=== PATIENT | female | born 1995 | race Caucasian/White ===

== ENCOUNTER 2017-12-10 18:11 | Inpatient (IN) | payer MEDICAID, OTHER ==
[~2017-12-10] VITALS: Ht 162.6 cm; Wt 54.5 kg
[2017-12-10] MEDS ORDERED: VENL-193 PO (18:38)
[2017-12-10] MEDS ORDERED: ARIP5TAB8 PO (18:38)
[2017-12-10 18:41] LABS: BASOPHILS % (AUTO) 0.9 % (0.0-2.0); EOSINOPHILS % (AUTO) 1.6 % (1.0-6.0); HEMOGLOBIN 12.3 g/dL (12.0-16.0); LYMPHOCYTES # (AUTO) 1.1 K/uL (1.0-4.8); LYMPHOCYTES % (AUTO) 19.2 % (22.0-44.0); MEAN CORPUSCULAR HEMOGLOBIN 28.6 pg (26.0-34.0); MEAN CORPUSCULAR HGB CONC 34.1 G/dL (31.0-37.0); MEAN CORPUSCULAR VOLUME 84 fL (80-100); MONOCYTES # (AUTO) 0.5 K/uL (0.1-1.0); NEUTROPHILS # (AUTO) 3.9 K/uL (1.8-7.7); NEUTROPHILS % (AUTO) 69.3 % (40.0-70.0); PLATELET COUNT (AUTO) 222 K/uL (150-450); RED CELL DISTRIBUTION WIDTH 14.1 % (11.5-14.5)
[2017-12-10 18:48] LABS: ANION GAP 8 mmol/L (8-16); CALCIUM, TOTAL 8.9 mg/dL (8.8-10.5); CARBON DIOXIDE 30 mmol/L (22-29); CHLORIDE 102 mmol/L (98-107); CREATININE 0.61 mg/dL (0.60-1.30); GLOMERULAR FILTR. RATE CALC > 60 mL/min (>60); GLUCOSE,RANDOM 86 mg/dL (70-110); POTASSIUM 3.5 mmol/L (3.5-5.1); SODIUM SERUM 140 mmol/L (136-145); UREA NITROGEN, BLOOD 11 mg/dL (7-18)
[2017-12-10 18:55] LABS: ALANINE AMINOTRANSFERASE 25 U/L (12-78); ALBUMIN 3.8 g/dL (3.4-5.0); ALKALINE PHOSPHATASE 80 U/L (46-116); ASPARTATE AMINOTRANSFERASE 19 U/L (15-37); BILIRUBIN,TOTAL 0.4 mg/dL (0.1-1.0); TOTAL PROTEIN, SERUM 7.6 g/dL (6.4-8.2)
[2017-12-10 22:07] LABS: AMPHET/METH SCREEN,URINE NEGATIVE (NEGATIVE); BARBITURATE SCREEN, URINE NEGATIVE (NEGATIVE); BENZODIAZEPINES SCREEN,URINE NEGATIVE (NEGATIVE); CANNABINOID SCREEN,URINE NEGATIVE (NEGATIVE); COCAINE SCREEN,URINE NEGATIVE (NEGATIVE); METHADONE SCREEN, URINE NEGATIVE (NEGATIVE); OPIATE SCREEN,URINE NEGATIVE (NEGATIVE); PHENCYCLIDINE SCREEN,URINE NEGATIVE (NEGATIVE)
[2017-12-10] MEDS: ZOLPIDEM TARTRATE 10 MG TABLET PO PRN (23:36)
[2017-12-11 00:30] VITALS: BP 135/85
[2017-12-11 02:07] LABS: APPEARANCE,URINE CLEAR (CLEAR); BILIRUBIN,URINE NEGATIVE (NEGATIVE); GLUCOSE, URINE (UA) NEGATIVE (NEGATIVE); KETONES,URINE NEGATIVE (NEGATIVE); LEUKOCYTE ESTERASE ,URINE NEGATIVE (NEGATIVE); NITRATE,URINE NEGATIVE (NEGATIVE); OCCULT BLOOD,URINE NEGATIVE (NEGATIVE); PH,URINE 5.5 (5.0-8.0); PROTEIN,URINE NEGATIVE (NEGATIVE); UROBILINOGEN,URINE 0.2 mg/dL (<=1.0)
[2017-12-11 02:27] VITALS: BP 135/85
[2017-12-11 07:19] LABS: CHOL/HDL RATIO 2.5 (3.9-5.7)
[2017-12-11] MEDS: LORazepam 2 MG TABLET PO PRN (08:27)
[2017-12-11] MEDS: HALOPERIDOL 5 MG TABLET PO PRN (08:27)
[2017-12-11 09:26] VITALS: BP 119/73
[2017-12-11 18:18] VITALS: BP 111/60
[2017-12-12] MEDS: ZOLPIDEM TARTRATE 10 MG TABLET PO PRN ×2 (00:01→21:11)
[2017-12-12] MEDS: HALOPERIDOL 5 MG TABLET PO PRN ×3 (00:01→21:11)
[2017-12-12 08:15] VITALS: BP 135/64
[2017-12-12] MEDS ORDERED: VENLAFAXINE HCL 75 MG ER CAPSULE PO SCH (09:00)
[2017-12-12] MEDS ORDERED: QUEtiapine FUMARATE 25 MG TABLET PO SCH (09:00)
[2017-12-12] MEDS: QUEtiapine FUMARATE 25 MG TABLET PO SCH (16:45)
[2017-12-12 17:32] VITALS: BP 128/71
[2017-12-13] MEDS: VENLAFAXINE HCL 150 MG ER CAPSULE PO SCH (10:23)
[2017-12-13] MEDS: QUEtiapine FUMARATE 25 MG TABLET PO SCH ×2 (10:24→16:24)
[2017-12-13] MEDS: LORazepam 2 MG TABLET PO PRN (12:02)
[2017-12-13] MEDS: HALOPERIDOL 5 MG TABLET PO PRN (12:03)
[2017-12-14 08:00] VITALS: BP 123/74
[2017-12-14] MEDS: HALOPERIDOL 5 MG TABLET PO PRN (08:37)
[2017-12-14] MEDS: LORazepam 2 MG TABLET PO PRN (08:37)
[2017-12-14] MEDS: VENLAFAXINE HCL 150 MG ER CAPSULE PO SCH (08:37)
[2017-12-14] MEDS: QUEtiapine FUMARATE 25 MG TABLET PO SCH (08:37)
[2017-12-14] MEDS: QUEtiapine FUMARATE 100 MG TABLET PO SCH (16:52)
[2017-12-14] MEDS ORDERED: QUEtiapine FUMARATE 25 MG TABLET PO SCH (17:00)
[2017-12-14 17:30] VITALS: BP 105/68
[2017-12-15 04:50] VITALS: BP 117/77
[2017-12-15] MEDS: HALOPERIDOL 5 MG TABLET PO PRN ×2 (05:01→17:48)
[2017-12-15] MEDS: QUEtiapine FUMARATE 100 MG TABLET PO SCH ×2 (08:35→17:33)
[2017-12-15] MEDS: LORazepam 2 MG TABLET PO PRN ×2 (08:37→17:48)
[2017-12-15] MEDS ORDERED: VENLAFAXINE HCL 150 MG ER CAPSULE PO SCH (09:00)
[2017-12-15] MEDS: VENLAFAXINE HCL 75 MG ER CAPSULE PO SCH (10:25)
[2017-12-15 13:57] VITALS: BP 125/73
[2017-12-15 16:51] VITALS: BP 111/58
[2017-12-15] MEDS ORDERED: QUEtiapine FUMARATE 200 MG TABLET PO SCH (21:00)
[2017-12-16 08:00] VITALS: BP 126/70
[2017-12-16] MEDS: QUEtiapine FUMARATE 100 MG TABLET PO SCH ×2 (09:33→16:34)
[2017-12-16] MEDS: VENLAFAXINE HCL 75 MG ER CAPSULE PO SCH (09:33)
[2017-12-16] MEDS: LORazepam 2 MG TABLET PO PRN ×2 (10:34→16:35)
[2017-12-16] MEDS: HALOPERIDOL 5 MG TABLET PO PRN (10:34)
[2017-12-16 16:08] VITALS: BP 99/55
[2017-12-16] MEDS ORDERED: VENL-67 PO (18:21)
[2017-12-16] MEDS ORDERED: QUET200T PO (18:21)
[2017-12-16] MEDS ORDERED: QUET100T PO (18:21)
== END 2017-12-16 19:00 | disposition home or self-care (01) | DRG 750 ==
LOC: EMS 18:14 → 6N 12-11 00:03 → UNDOADMIN 12-11 00:03 → 3EI 12-11 00:03
PROVIDERS: ADMIT Psychiatry & Neurology Psychiatry; ATTEND Psychiatry & Neurology Psychiatry
DX: F25.1 Schizoaffective disorder, depressive type (principal); R45.851 Suicidal ideations; F29 Unspecified psychosis not due to a substance or known physiological condition; D64.9 Anemia, unspecified; F41.9 Anxiety disorder, unspecified; F60.3 Borderline personality disorder; Z91.5 Personal history of self-harm
CPT/HCPCS: 99285; G0480

== ENCOUNTER 2018-05-27 19:36 | Emergency (ER) | payer MEDICAID, OTHER ==
[~2018-05-27] VITALS: Ht 165.1 cm; Wt 59.1 kg
[~2018-05-27 19:36] MED LIST: QUET100T PO; QUET200T PO; VENL-67 PO
[2018-05-27] MEDS ORDERED: SODIUM CHLORIDE 0.9% 1,000 ML IV ONE (20:00)
[2018-05-27] MEDS ORDERED: ONDANSETRON HCL 4 MG/2 ML VIAL IVP ONE (20:00)
[2018-05-27] MEDS ORDERED: RISP.5 PO (20:01)
[2018-05-27] MEDS ORDERED: HALO1 PO (20:01)
[2018-05-27] MEDS ORDERED: QUET25TA PO (20:01)
[2018-05-27 20:08] LABS: BASOPHILS % (AUTO) 0.1 % (0.0-2.0); EOSINOPHILS % (AUTO) 0 % (1.0-6.0); HEMATOCRIT 35.2 % (36-46); HEMOGLOBIN 12.3 g/dL (12.0-16.0); LYMPHOCYTES # (AUTO) 0.9 K/uL (1.0-4.8); LYMPHOCYTES % (AUTO) 12.2 % (22.0-44.0); MEAN CORPUSCULAR HEMOGLOBIN 28.8 pg (26.0-34.0); MEAN CORPUSCULAR VOLUME 82 fL (80-100); MONOCYTES # (AUTO) 0.3 K/uL (0.1-1.0); MONOCYTES % (AUTO) 4.5 % (2.0-9.0); NEUTROPHILS # (AUTO) 6.3 K/uL (1.8-7.7); NEUTROPHILS % (AUTO) 83.2 % (40.0-70.0); PLATELET COUNT (AUTO) 213 K/uL (150-450); RED BLOOD CELL COUNT(AUTO) 4.27 MIL/uL (4.00-5.20); RED CELL DISTRIBUTION WIDTH 14.2 % (11.5-14.5)
[2018-05-27 20:17] LABS: ANION GAP 11 mmol/L (8-16); CALCIUM, TOTAL 9.1 mg/dL (8.8-10.5); CARBON DIOXIDE 28 mmol/L (22-29); CHLORIDE 101 mmol/L (98-107); CREATININE 0.68 mg/dL (0.60-1.30); GLOMERULAR FILTR. RATE CALC > 60 mL/min (>60); GLUCOSE,RANDOM 141 mg/dL (70-110); POTASSIUM 3.6 mmol/L (3.5-5.1); SODIUM SERUM 140 mmol/L (136-145); UREA NITROGEN, BLOOD 8 mg/dL (7-18)
[2018-05-27 20:22] LABS: ALANINE AMINOTRANSFERASE 19 U/L (12-78); ALBUMIN 3.9 g/dL (3.4-5.0); ALKALINE PHOSPHATASE 86 U/L (46-116); ASPARTATE AMINOTRANSFERASE 15 U/L (15-37); BILIRUBIN,TOTAL 0.2 mg/dL (0.1-1.0); LIPASE 97 U/L (73-393); TOTAL PROTEIN, SERUM 7.9 g/dL (6.4-8.2)
[2018-05-27 21:24] LABS: APPEARANCE,URINE CLOUDY (CLEAR); BILIRUBIN,URINE NEGATIVE (NEGATIVE); GLUCOSE, URINE (UA) NEGATIVE (NEGATIVE); KETONES,URINE NEGATIVE (NEGATIVE); LEUKOCYTE ESTERASE ,URINE NEGATIVE (NEGATIVE); NITRATE,URINE NEGATIVE (NEGATIVE); OCCULT BLOOD,URINE NEGATIVE (NEGATIVE); PROTEIN,URINE TRACE (NEGATIVE); UROBILINOGEN,URINE 0.2 mg/dL (<=1.0)
[2018-05-27 21:31] LABS: BACTERIA,URINE Moderate /HPF (None Seen); CALCIUM OXALATE CRYSTALS,UR Moderate /LPF (None Seen); RBC,URINE 0-2 /HPF (0-2); SQUAMOUS EPITHELIAL CELL,UR Moderate /LPF (None Seen); WBC,URINE 0-2 /HPF (0-5)
[2018-05-27 22:30] VITALS: BP 110/67
[2018-05-27 22:35] LABS: AMPHET/METH SCREEN,URINE NEGATIVE (NEGATIVE); BARBITURATE SCREEN, URINE NEGATIVE (NEGATIVE); BENZODIAZEPINES SCREEN,URINE NEGATIVE (NEGATIVE); CANNABINOID SCREEN,URINE NEGATIVE (NEGATIVE); COCAINE SCREEN,URINE NEGATIVE (NEGATIVE); METHADONE SCREEN, URINE NEGATIVE (NEGATIVE); OPIATE SCREEN,URINE NEGATIVE (NEGATIVE)
[2018-05-27 22:44] LABS: PHENCYCLIDINE SCREEN,URINE NEGATIVE (NEGATIVE)
== END 2018-05-27 22:39 | disposition home or self-care (01) ==
LOC: EMS 19:37
DX: R11.2 Nausea with vomiting, unspecified (principal); F41.9 Anxiety disorder, unspecified; F32.9 Major depressive disorder, single episode, unspecified; F20.9 Schizophrenia, unspecified
CPT/HCPCS: 36415; 80053; 80307; 81001; 83690; 84703; 85025; 87086; 93005; 96361; 96374; 99285; J2405; J7030